=== PATIENT | female | born 1955 | race Caucasian/White ===

== ENCOUNTER → 2017-07-18 | Outpatient (CLI) | payer OTHER ==
[~2017-07-18] VITALS: Ht 165.1 cm; Wt 107.0 kg
[~2017-07-18] MED LIST: CALCIUM 600 +1 EAC1 PO; CENTRUM SILVER1 EAC4 PO; FISH OIL 1,001000 M2 PO; METHYLPHENIDATE20 M1 PO; NORVASC5 MG PO; PROTONIX40 M1 PO; VITAMIN B COMP1 EACH PO; VITAMIN D-32000 UNIT PO; VITAMINC500 PO; ZESTORETIC 20-1 EAC3 PO
--- NOTE | ~2017-07-18 | P ---
[facility] [place] [address] PROCEDURE REPORT Name: SADI STAHL Room #: [id number] Admission: 07/18/17 Attend Phys: Manny Danielson Discharge: Date of : 59 Report #: [id number] THIS REPORT FOR: //name// CC: Manny Apple MD DATE OF SERVICE: 07/18/2017 PROCEDURE PERFORMED: Colonoscopy with polypectomy. HISTORY OF PRESENT ILLNESS: The patient is a 61-year-old female who presents today for routine screening colonoscopy. No previous history of endoscopy, no symptoms, no family history of colon cancer. PROCEDURE: The risks and benefits of the procedure were explained to the patient, those risks including, but not limited to bleeding, perforation, the risk of sedation. She understood these risks and gave informed consent. Sedation was given using propofol per anesthesia. Next, a digital rectal exam was initially performed, which was normal. Next, using a standard Fujinon colonoscope, the scope was placed in the patient's anus and advanced under direct vision to the cecum. The overall prep was excellent. The cecum and ileocecal valve were normal in appearance. In the ascending colon, a 5-mm sessile polyp was noted. This was removed by snare cautery, otherwise normal. The transverse, descending and sigmoid colon were all normal. The rectal mucosa was normal. On retroflexion, no abnormalities were noted. The scope was then withdrawn and the procedure terminated. The patient tolerated the procedure well. IMPRESSION: 1. Colon polyp. 2. Otherwise, normal colonoscopy. RECOMMENDATIONS: 1. Await biopsy results. 2. If polyp is hyperplastic, repeat in 10 years; if adenomatous polyp, repeat in 5 years. Thank you for allowing me to participate in her care. By: [id number] Manny Lopez MD /nt
--- NOTE | ~2017-07-18 | PATH ---
[facility] [address] [place] [address] PATHOLOGY RPT PROCEDURE Name: SADI STAHL Room #: REG LISANDRO Knapp.#: [id number] Admission: 07/18/17 Date of : 59 Discharge: Report #: [id number] Path Case #: [id number] [facility] Accession Number: [id number] . 01 Material submitted: . POLYP AT ASCENDING COLON . 02 Diagnosis: Polyp, at ascending colon, endoscopic biopsy: - Tubular adenoma. - Negative for high-grade dysplasia. (IUV:mgr; 07/19/17) QRQ/07/19/2017 . 02 Electronically signed: . Dana Silverman MD, Pathologist NPI- [id number] . 01 Gross description: . Received in formalin labeled "Shanita Stahl, polyp at ascending colon" and consists of a 0.5 x 0.4 x 0.3 cm red polypoid tissue fragment which is entirely submitted as A1. ([place]; 07/18/2017) JBR/JBR . 02 Pathologist provided ICD-10: D12.2 . 02 CPT . 752228 Performed at: [address], [place] [id number] MD Nacho Gorman MD Phone: [phone] Performed at: [address] [id number] MD Dana Silverman MD Phone: [phone]
== END | disposition home or self-care (01) ==
LOC: GI 07:58
DX: Z12.11 Encounter for screening for malignant neoplasm of colon (principal); D12.2 Benign neoplasm of ascending colon; I10 Essential (primary) hypertension; K21.9 Gastro-esophageal reflux disease without esophagitis; Z98.890 Other specified postprocedural states; Z79.899 Other long term (current) drug therapy
CPT/HCPCS: 62110; 62900

== ENCOUNTER → 2019-12-03 | Outpatient (CLI) | payer OTHER | LOC: RAD 14:08 | PROVIDERS: ATTEND Family Medicine | DX: Z12.31 Encounter for screening mammogram for malignant neoplasm of breast (principal) ==

== ENCOUNTER → 2020-03-26 | Outpatient (CLI) | payer OTHER ==
[2020-03-26 09:04] LABS: ABSOLUTE NEUTROPHILS 5.2 thou/uL (1.4-8.2); BASOPHILS 0.8 % (0.0-2.0); EOSINOPHILS 2.3 % (0.0-3.0); HEMATOCRIT 41.3 % (37.0-47.0); HEMOGLOBIN 13.7 gm/dL (12.0-15.0); LYMPHOCYTES 32.5 % (24.0-44.0); MCH 27.9 pg (26.0-34.0); MCHC 33.3 g/dL (28.0-37.0); MCV 83.8 fL (80.0-100.0); MONOCYTES 7.3 % (1.0-8.0); PLATELET COUNT 231 thou/uL (150-400); POLYS 57.1 % (36.0-66.0); RBC 4.92 mil/uL (4.20-5.00); RDW 13.8 % (10.5-14.5); WBC 9.2 thou/uL (4.0-11.0)
[2020-03-26 09:22] LABS: ALBUMIN 4.1 g/dL (3.4-5.0); ANION GAP 8 mmol/L (7-16); BUN 19 mg/dL (7-18); CALCIUM 9.7 mg/dL (8.5-10.1); CHLORIDE 99 mmol/L (98-107); CHOLESTEROL 257 mg/dL (<200); CO2 32 mmol/L (21-32); CREATININE 0.8 mg/dL (0.6-1.0); GLUCOSE 112 mg/dL (74-106); HDL CHOLESTEROL 103 mg/dL (>40); LDL CHOLESTEROL 138 mg/dL (<100); SGOT 32 U/L (15-37); SGPT 74 U/L (30-65); SODIUM 139 mmol/L (136-145); TC:HDL 2.5 Ratio (Not establshd); TOTAL BILIRUBIN 0.5 mg/dL (0.2-1.0); TOTAL PROTEIN 7.5 g/dL (6.4-8.2); TRIGLYCERIDE 84 mg/dL (<150); VLDL 17 mg/dL (<40)
[2020-03-27 06:06] LABS: GLYCOHEMOGLOBIN (HGB A1C) 5.8 % (4.8-5.6)
== END ==
LOC: LAB 08:32
PROVIDERS: ATTEND Nurse Practitioner
DX: Z00.00 Encounter for general adult medical examination without abnormal findings (principal); E78.2 Mixed hyperlipidemia

== ENCOUNTER → 2020-05-03 | Outpatient (CLI) | payer OTHER | LOC: LAB 07:37 | PROVIDERS: ATTEND Hospitalist | DX: J02.9 Acute pharyngitis, unspecified (principal); R05 Cough; Z20.822 Contact with and (suspected) exposure to COVID-19 ==

== ENCOUNTER → 2020-05-06 | Outpatient (CLI) | payer OTHER | LOC: NUC 13:12 | PROVIDERS: ATTEND Nurse Practitioner | DX: Z78.0 Asymptomatic menopausal state (principal) ==